=== PATIENT | male | born 1965 | race Caucasian/White ===

== ENCOUNTER 2022-01-09 10:26 | Emergency (ER) | payer MEDICAID ==
[~2022-01-09] VITALS: Ht 185.4 cm; Wt 99.8 kg
--- NOTE | 2022-01-09 10:26 | NUR ---
PT BIB C/O R SHOULDER AND R COLLAR BONE PAIN S/P TRIP AND FALL. PT IS AAOX4, NOT IN RESPIRATORY DISTRESS, V/S STABLE, KEPT RESTED AND COMFORTABLE. WILL CONTINUE TO MONITOR.
--- NOTE | 2022-01-09 10:42 | NUR ---
SEEN AND EXAMINED BY .
[2022-01-09] MEDS ORDERED: HYDROCODONE/APAP 5/325MG TABLET ONE ×2 (11:09→11:18)
[2022-01-09] MEDS ORDERED: HYDROCODONE/APAP 5/325MG TABLET PO ONE (11:30)
[2022-01-09] MEDS ORDERED: IBUP-1955 PO (11:44)
[2022-01-09] MEDS ORDERED: AMLO-212 PO (11:44)
[2022-01-09] MEDS ORDERED: HYDR-4303 PO ×2 (11:44→17:19)
[2022-01-09 12:09] VITALS: BP 127/84
--- NOTE | 2022-01-09 12:09 | NUR ---
Patient discharged to home in stable condition. Written and verbal after care instructions given. Patient verbalizes understanding of instruction.
== END 2022-01-09 17:23 | disposition home or self-care (01) ==
LOC: ER 10:28
DX: S42.024A Nondisplaced fracture of shaft of right clavicle, initial encounter for closed fracture (principal); I10 Essential (primary) hypertension; F17.200 Nicotine dependence, unspecified, uncomplicated; Z87.442 Personal history of urinary calculi; W10.9XXA Fall (on) (from) unspecified stairs and steps, initial encounter; Y93.89 Activity, other specified; Y92.89 Other specified places as the place of occurrence of the external cause; Y99.8 Other external cause status
CPT/HCPCS: 71045-TC; 73030-TC